=== PATIENT | female | born 1945 | race Caucasian/White ===

== ENCOUNTER 2017-02-08 21:23 | Emergency (ER) | payer MEDICARE, SELFPAY ==
[~2017-02-08 21:23] MED LIST: ALBUTEROL IN200 PUFF INH; ASPIRIN81 MG PO; ATROVENT2.5 ML NEB; AZITHROMYCIN500 MG PO; BENAZEPRIL HCL40 MG PO; BISACODYL5 MG PO; BUSPIRONE HCL7.5 MG PO; CALCIUM + VITA1 EACH PO; CARAFATE1 GM PO; CARDIZEM PO; CATAPRES0.1 MG PO; CATAPRES0.3 MG PO; CEFDINIR300 MG PO; CHILDRENS CHEWA81 MG PO; CLARITIN10 M2 PO; COUMADIN5 MG PO; COUMADIN6 MG PO; DIABETA5 MG PO; DULCOLAX5 MG PO; FEOSOL325 MG PO; FERROUS SULFAT325 MG PO; FOLIC ACID1 MG PO; FUROSEMIDE40 MG PO; GLIPIZIDE10 MG PO; GLUCOPHAGE1000 MG PO; GLUCOTROL10 MG PO; GLYBURIDE5 MG PO; HYDROCHLOROTH12.5 MG PO; K-TAB ER10 MEQ PO; KEFLEX500 MG PO; KLOR-CON 1010 MEQ PO; LASIX40 MG PO; LEVAQUIN500 MG PO; LEVAQUIN750 MG PO; LEVEMIR FL100 UNIT/1 SQ; LEVEMIR SC; LEVEMIR SQ; LIPITOR10 MG PO; LIPITOR20 MG PO; LORADAMED10 MG PO; LOTENSIN20 MG PO; MAGNESIUM OXID400 MG PO; METFORMIN HCL1000 MG PO; NITROGLYCERIN0.4 MG SL; NITROQUICK0.4 MG SL; NOVOLOG FL100 UNIT/1 SQ; OMEPRAZOLE40 MG PO; PANTOPRAZOLE SO40 MG PO; PEPCID20 MG PO; PHOSPHA 250 NE250 MG PO; POTASSIUM CHLO10 ME1 PO; POTASSIUM GLUC500 MG PO; POTASSIUM GLUCONATE PO; PREDNISONE 10MG10 MG PO; PREDNISONE10 M1 PO; PREDNISONE10 MG PO; PRILOSEC40 MG PO; PROAIR HFA8.5 GM INH; PROZAC20 MG PO; SPIRIVA HANDIH90 MCG INH; SPIRIVA18 MCG IH; SPIRIVA18 MCG INH; SUCRALFATE1 GM PO; SYMBICORT 16010.2 GM INH; SYMBICORT 16060 PUFF INH; TOPROL XL 50 MG50 MG PO; TOPROL XL25 MG PO; TYLENOL325 M1 PO; VALIUM5 MG PO; VENTOLIN HFA8 GM INH; WARFARIN SODIUM1 GM PO; WARFARIN SODIUM2 MG PO; WARFARIN SODIUM5 MG PO; WARFARIN SODIUM6 MG PO; XOPENEX0.63 MG/3 NEB; ZITHROMAX250 MG PO
== END 2017-02-09 00:08 | disposition other institution (70) ==
LOC: ER 21:23
DX: J44.1 Chronic obstructive pulmonary disease with (acute) exacerbation (principal); I48.91 Unspecified atrial fibrillation; R00.0 Tachycardia, unspecified; R07.89 Other chest pain; I10 Essential (primary) hypertension; Z95.5 Presence of coronary angioplasty implant and graft; Z82.49 Family history of ischemic heart disease and other diseases of the circulatory system; Z88.8 Allergy status to other drugs, medicaments and biological substances
CPT/HCPCS: 99284; 99284-25

== ENCOUNTER 2017-02-08 21:23 | Inpatient (IN) | payer MEDICARE, SELFPAY ==
[~2017-02-08] VITALS: Ht 162.6 cm; Wt 90.0 kg
[2017-02-08 22:15] LABS: BASO % 0.1 % (0.1-1.2); EOS % 0.1 % (0.7-5.8); GRAN # 16.7 10_X3_uL (1.6-6.1); GRAN % 86.4 % (34.0-71.1); HEMATOCRIT 37.1 % (34-45); HEMOGLOBIN 11.3 g/dL (11.2-15.7); LYMPH # 1.1 10_X3_uL (1.2-3.7); LYMPH % 5.7 % (19.3-51.7); MEAN CORPUSCULAR HEMOGLOBIN 29.4 pg (27.0-33.0); MEAN CORPUSCULAR HGB CONC 30.5 g/dL (32.0-36.0); MEAN CORPUSCULAR VOLUME 96.6 fL (79-95); MEAN PLATELET VOLUME 10.5 fl (7.5-11.5); MONO # 1.5 10_X3_uL (0.2-0.9); MONO % 7.7 % (4.7-12.5); PLATELET COUNT 247 x10_3/uL (182-369); RED BLOOD COUNT 3.84 x10_6/uL (3.9-5.2); RED CELL DISTRIBUTION WIDTH 15.1 % (11.7-14.4); WHITE BLOOD COUNT 19.3 x10_3/uL (4.0-10.0)
[2017-02-08 22:27] LABS: INR 2.8 (0.9-1.1); PARTIAL THROMBOPLASTIN TIME 48.5 SECONDS (21.3-29.3); PROTHROMBIN TIME (PATIENT) 29.2 SECONDS (9.9-11.1)
[2017-02-08 22:33] LABS: ALKALINE PHOSPHATASE 87 U/L (50-136); ALT/SGPT 10 U/L (3.5-33.9); AST/SGOT 9 U/L (7.04-26.96); BILIRUBIN,TOTAL 0.63 mg/dL (0.0-1.0); BLOOD UREA NITROGEN 16 mg/dL (7-18); CALCIUM 8.3 mg/dL (8.7-10.7); CARBON DIOXIDE 26 mmol/L (21-32); CREATINE KINASE 37 U/L (21-215); CREATININE 0.9 mg/dL (0.6-1.3); GLUCOSE,RANDOM 218 mg/dL (70-99); SODIUM 140 mmol/L (136-145)
[2017-02-09 07:19] LABS: PARTIAL THROMBOPLASTIN TIME 52.1 SECONDS (21.3-29.3); PROTHROMBIN TIME (PATIENT) 30.6 SECONDS (9.9-11.1)
[2017-02-09 09:48] LABS: HEMATOCRIT 37.1 % (34-45); HEMOGLOBIN 11.3 g/dL (11.2-15.7); MEAN CORPUSCULAR HEMOGLOBIN 29.5 pg (27.0-33.0); MEAN CORPUSCULAR HGB CONC 30.5 g/dL (32.0-36.0); MEAN CORPUSCULAR VOLUME 96.9 fL (79-95); MEAN PLATELET VOLUME 11.3 fl (7.5-11.5); PLATELET COUNT 241 x10_3/uL (182-369); RED BLOOD COUNT 3.83 x10_6/uL (3.9-5.2); RED CELL DISTRIBUTION WIDTH 15.2 % (11.7-14.4)
[2017-02-09 09:58] LABS: ALBUMIN 3.8 gm/dL (3.4-5.0); ALKALINE PHOSPHATASE 90 U/L (50-136); ALT/SGPT 10 U/L (3.5-33.9); AST/SGOT 12 U/L (7.04-26.96); BILIRUBIN,TOTAL 0.48 mg/dL (0.0-1.0); BLOOD UREA NITROGEN 16 mg/dL (7-18); CALCIUM 8.2 mg/dL (8.7-10.7); CARBON DIOXIDE 24 mmol/L (21-32); CREATININE 0.9 mg/dL (0.6-1.3); GLUCOSE,RANDOM 199 mg/dL (70-99); POTASSIUM 4.4 mmol/L (3.5-5.1); SODIUM 139 mmol/L (136-145); TOTAL PROTEIN 6.2 gm/dL (6.4-8.2)
[2017-02-09 10:16] LABS: WHITE BLOOD COUNT 21.1 x10_3/uL (4.0-10.0)
[2017-02-10 07:35] LABS: GRAN # 15.7 10_X3_uL (1.6-6.1); GRAN % 88.3 % (34.0-71.1); HEMATOCRIT 34.8 % (34-45); HEMOGLOBIN 10.8 g/dL (11.2-15.7); LYMPH # 1.3 10_X3_uL (1.2-3.7); LYMPH % 7.1 % (19.3-51.7); MEAN CORPUSCULAR HEMOGLOBIN 29.8 pg (27.0-33.0); MEAN CORPUSCULAR VOLUME 95.9 fL (79-95); MEAN PLATELET VOLUME 10.7 fl (7.5-11.5); MONO # 0.8 10_X3_uL (0.2-0.9); MONO % 4.6 % (4.7-12.5); PLATELET COUNT 282 x10_3/uL (182-369); RED BLOOD COUNT 3.63 x10_6/uL (3.9-5.2); RED CELL DISTRIBUTION WIDTH 14.9 % (11.7-14.4); WHITE BLOOD COUNT 17.8 x10_3/uL (4.0-10.0)
[2017-02-10 07:47] LABS: ALBUMIN 3.5 gm/dL (3.4-5.0); BILIRUBIN,TOTAL 0.22 mg/dL (0.0-1.0); CALCIUM 8.5 mg/dL (8.7-10.7); CREATININE 1.1 mg/dL (0.6-1.3); MAGNESIUM 1.9 mg/dL (1.8-2.4); POTASSIUM 4.2 mmol/L (3.5-5.1); TOTAL PROTEIN 6.3 gm/dL (6.4-8.2)
[2017-02-10 09:42] LABS: INR 4.1 (0.9-1.1); PROTHROMBIN TIME (PATIENT) 42.1 SECONDS (9.9-11.1)
== END 2017-02-10 11:37 | disposition home or self-care (01) | DRG 309 ==
LOC: ER 21:23 → MS 02-09 00:08
PROVIDERS: Emergency Medicine; ADMIT Family Medicine
DX: I48.91 Unspecified atrial fibrillation (principal); J44.0 Chronic obstructive pulmonary disease with (acute) lower respiratory infection; J44.1 Chronic obstructive pulmonary disease with (acute) exacerbation; J20.9 Acute bronchitis, unspecified; D72.829 Elevated white blood cell count, unspecified; E11.9 Type 2 diabetes mellitus without complications; I10 Essential (primary) hypertension; Z95.5 Presence of coronary angioplasty implant and graft; Z80.9 Family history of malignant neoplasm, unspecified; Z83.3 Family history of diabetes mellitus; R42 Dizziness and giddiness; R00.2 Palpitations; R53.1 Weakness; Z88.8 Allergy status to other drugs, medicaments and biological substances; Z79.01 Long term (current) use of anticoagulants; Z79.899 Other long term (current) drug therapy; Z79.4 Long term (current) use of insulin
CPT/HCPCS: 36415; 71010; 80053; 80061; 82550; 82553; 82962; 83605; 83735; 83880; 85025; 85610; 85730; 87040; 87070; 87205; 87400; 93005; 93041; 94640; 96365; 96375; 99070; 99284; 99284-25; J2930

== ENCOUNTER 2017-03-27 11:58 | Inpatient (IN) | payer MEDICARE ==
[~2017-03-27] VITALS: Ht 165.1 cm; Wt 88.0 kg
[2017-03-27 12:53] LABS: HEMATOCRIT 37.9 % (34-45); HEMOGLOBIN 11.3 g/dL (11.2-15.7); MEAN CORPUSCULAR HEMOGLOBIN 29.4 pg (27.0-33.0); MEAN CORPUSCULAR HGB CONC 29.8 g/dL (32.0-36.0); MEAN CORPUSCULAR VOLUME 98.7 fL (79-95); MEAN PLATELET VOLUME 10.9 fl (7.5-11.5); RED BLOOD COUNT 3.84 x10_6/uL (3.9-5.2); RED CELL DISTRIBUTION WIDTH 15.6 % (11.7-14.4); WHITE BLOOD COUNT 14.1 x10_3/uL (4.0-10.0)
[2017-03-27 13:14] LABS: ALBUMIN 3.9 gm/dL (3.4-5.0); ALKALINE PHOSPHATASE 89 U/L (50-136); ALT/SGPT 13 U/L (3.5-33.9); AST/SGOT 13 U/L (7.04-26.96); BILIRUBIN,TOTAL 0.61 mg/dL (0.0-1.0); BLOOD UREA NITROGEN 20 mg/dL (7-18); CALCIUM 9.1 mg/dL (8.7-10.7); CARBON DIOXIDE 29 mmol/L (21-32); CREATININE 0.9 mg/dL (0.6-1.3); GLUCOSE,RANDOM 161 mg/dL (70-99); SODIUM 143 mmol/L (136-145); TOTAL PROTEIN 6.9 gm/dL (6.4-8.2)
[2017-03-29 06:48] LABS: HEMATOCRIT 32.9 % (34-45); MEAN CORPUSCULAR HEMOGLOBIN 29.6 pg (27.0-33.0); MEAN CORPUSCULAR HGB CONC 30.4 g/dL (32.0-36.0); MEAN CORPUSCULAR VOLUME 97.3 fL (79-95); MEAN PLATELET VOLUME 11.1 fl (7.5-11.5); RED BLOOD COUNT 3.38 x10_6/uL (3.9-5.2); RED CELL DISTRIBUTION WIDTH 15.8 % (11.7-14.4); WHITE BLOOD COUNT 16.4 x10_3/uL (4.0-10.0)
[2017-03-29 07:04] LABS: CALCIUM 9.3 mg/dL (8.7-10.7); CREATININE 1.1 mg/dL (0.6-1.3); POTASSIUM 4.6 mmol/L (3.5-5.1)
[2017-03-30 06:39] LABS: HEMATOCRIT 31.6 % (34-45); HEMOGLOBIN 9.7 g/dL (11.2-15.7); MEAN CORPUSCULAR HEMOGLOBIN 29.9 pg (27.0-33.0); MEAN CORPUSCULAR HGB CONC 30.7 g/dL (32.0-36.0); MEAN CORPUSCULAR VOLUME 97.5 fL (79-95); RED BLOOD COUNT 3.24 x10_6/uL (3.9-5.2); WHITE BLOOD COUNT 14.5 x10_3/uL (4.0-10.0)
[2017-03-30 06:47] LABS: CALCIUM 8.9 mg/dL (8.7-10.7); CREATININE 1.2 mg/dL (0.6-1.3); POTASSIUM 4.2 mmol/L (3.5-5.1)
[2017-03-31 06:56] LABS: BASO % 0.1 % (0.1-1.2); EOS % 0.1 % (0.7-5.8); GRAN # 13.3 10_X3_uL (1.6-6.1); GRAN % 87.7 % (34.0-71.1); HEMATOCRIT 34.7 % (34-45); HEMOGLOBIN 10.7 g/dL (11.2-15.7); LYMPH # 1.3 10_X3_uL (1.2-3.7); LYMPH % 8.6 % (19.3-51.7); MEAN CORPUSCULAR HGB CONC 30.8 g/dL (32.0-36.0); MEAN CORPUSCULAR VOLUME 97.2 fL (79-95); MONO # 0.5 10_X3_uL (0.2-0.9); MONO % 3.5 % (4.7-12.5); PLATELET COUNT 311 x10_3/uL (182-369); RED BLOOD COUNT 3.57 x10_6/uL (3.9-5.2); RED CELL DISTRIBUTION WIDTH 16.1 % (11.7-14.4); WHITE BLOOD COUNT 15.2 x10_3/uL (4.0-10.0)
[2017-03-31 07:05] LABS: ALBUMIN 3.4 gm/dL (3.4-5.0); BILIRUBIN,TOTAL 0.42 mg/dL (0.0-1.0); CALCIUM 8.8 mg/dL (8.7-10.7); CREATININE 1.1 mg/dL (0.6-1.3); POTASSIUM 4.2 mmol/L (3.5-5.1); TOTAL PROTEIN 5.7 gm/dL (6.4-8.2)
[2017-04-01 06:52] LABS: HEMATOCRIT 32.2 % (34-45); HEMOGLOBIN 10.1 g/dL (11.2-15.7); MEAN CORPUSCULAR HEMOGLOBIN 30.2 pg (27.0-33.0); MEAN CORPUSCULAR HGB CONC 31.4 g/dL (32.0-36.0); MEAN CORPUSCULAR VOLUME 96.4 fL (79-95); MEAN PLATELET VOLUME 10.8 fl (7.5-11.5); RED BLOOD COUNT 3.34 x10_6/uL (3.9-5.2); RED CELL DISTRIBUTION WIDTH 16.2 % (11.7-14.4); WHITE BLOOD COUNT 13.8 x10_3/uL (4.0-10.0)
[2017-04-01 07:14] LABS: BILIRUBIN,TOTAL 0.38 mg/dL (0.0-1.0); CALCIUM 8.4 mg/dL (8.7-10.7); POTASSIUM 4.2 mmol/L (3.5-5.1); TOTAL PROTEIN 5.1 gm/dL (6.4-8.2)
== END 2017-04-01 13:20 | disposition home or self-care (01) | DRG 192 ==
LOC: MS 11:58
PROVIDERS: ADMIT Family Medicine
DX: J44.0 Chronic obstructive pulmonary disease with (acute) lower respiratory infection (principal); J20.9 Acute bronchitis, unspecified; J44.1 Chronic obstructive pulmonary disease with (acute) exacerbation; I48.91 Unspecified atrial fibrillation; R00.0 Tachycardia, unspecified; I10 Essential (primary) hypertension; E11.9 Type 2 diabetes mellitus without complications; F41.9 Anxiety disorder, unspecified; I50.9 Heart failure, unspecified; R53.1 Weakness; R50.9 Fever, unspecified; Z87.891 Personal history of nicotine dependence; Z80.9 Family history of malignant neoplasm, unspecified; Z83.6 Family history of other diseases of the respiratory system; Z79.899 Other long term (current) drug therapy; Z79.02 Long term (current) use of antithrombotics/antiplatelets; Z79.84 Long term (current) use of oral hypoglycemic drugs; Z88.8 Allergy status to other drugs, medicaments and biological substances; Z95.5 Presence of coronary angioplasty implant and graft
CPT/HCPCS: 36415; 71020; 71250; 80048; 80053; 80061; 82962; 83036; 85025; 86738; 87040; 87070; 87205; 87449; 94640; 94664; 99070; J2920; J2930; J7040

== ENCOUNTER 2017-03-27 11:58 | Observation (INO) | payer MEDICARE, SELFPAY | END 2017-03-29 10:10 | disposition other institution (70) | LOC: MS 11:58 | PROVIDERS: ADMIT Family Medicine | DX: J44.0 Chronic obstructive pulmonary disease with (acute) lower respiratory infection (principal); J20.9 Acute bronchitis, unspecified; J44.1 Chronic obstructive pulmonary disease with (acute) exacerbation; I48.91 Unspecified atrial fibrillation; R00.0 Tachycardia, unspecified; I10 Essential (primary) hypertension; E11.9 Type 2 diabetes mellitus without complications; F41.9 Anxiety disorder, unspecified; I50.9 Heart failure, unspecified; R53.1 Weakness; R50.9 Fever, unspecified; Z87.891 Personal history of nicotine dependence; Z80.9 Family history of malignant neoplasm, unspecified; Z83.6 Family history of other diseases of the respiratory system; Z79.899 Other long term (current) drug therapy; Z79.84 Long term (current) use of oral hypoglycemic drugs; Z88.8 Allergy status to other drugs, medicaments and biological substances; Z95.5 Presence of coronary angioplasty implant and graft | CPT/HCPCS: 36415; 71020; 80053; 80061; 82962; 83036; 86738; 87040; 87205; 87449; 94640; 94664; 96365; 96366; 96367; 96375; 96376; 99070; G0378; J2930 ==

== ENCOUNTER 2017-04-20 15:02 | Observation (INO) | payer MEDICARE, OTHER | END 2017-04-22 10:12 | disposition other institution (70) | LOC: MS 15:02 | PROVIDERS: ADMIT Family Medicine | DX: J44.0 Chronic obstructive pulmonary disease with (acute) lower respiratory infection (principal); J18.9 Pneumonia, unspecified organism; J44.1 Chronic obstructive pulmonary disease with (acute) exacerbation; I11.0 Hypertensive heart disease with heart failure; I50.9 Heart failure, unspecified; I48.91 Unspecified atrial fibrillation; E11.9 Type 2 diabetes mellitus without complications; D72.829 Elevated white blood cell count, unspecified; R74.0 Nonspecific elevation of levels of transaminase and lactic acid dehydrogenase [LDH]; M62.50 Muscle wasting and atrophy, not elsewhere classified, unspecified site; R11.0 Nausea; I25.10 Atherosclerotic heart disease of native coronary artery without angina pectoris; D64.9 Anemia, unspecified; R60.0 Localized edema; J98.11 Atelectasis; F41.9 Anxiety disorder, unspecified; Z80.9 Family history of malignant neoplasm, unspecified; Z79.899 Other long term (current) drug therapy; Z79.02 Long term (current) use of antithrombotics/antiplatelets; Z79.4 Long term (current) use of insulin | CPT/HCPCS: 36415; 71020; 80053; 80061; 82962; 83036; 85025; 86738; 87040; 87205; 87449; 94640; 94664; 99070; G0378; J2930 ==

== ENCOUNTER 2017-04-20 15:02 | Inpatient (IN) | payer MEDICARE, OTHER ==
[~2017-04-20] VITALS: Ht 165.1 cm; Wt 87.0 kg
[2017-04-21 06:43] LABS: GRAN # 6.5 10_X3_uL (1.6-6.1); GRAN % 88.5 % (34.0-71.1); HEMOGLOBIN 9.9 g/dL (11.2-15.7); LYMPH # 0.8 10_X3_uL (1.2-3.7); LYMPH % 10.1 % (19.3-51.7); MEAN CORPUSCULAR HEMOGLOBIN 30.5 pg (27.0-33.0); MEAN CORPUSCULAR HGB CONC 30.9 g/dL (32.0-36.0); MEAN CORPUSCULAR VOLUME 98.5 fL (79-95); MEAN PLATELET VOLUME 10.2 fl (7.5-11.5); MONO # 0.1 10_X3_uL (0.2-0.9); MONO % 1.4 % (4.7-12.5); PLATELET COUNT 336 x10_3/uL (182-369); RED BLOOD COUNT 3.25 x10_6/uL (3.9-5.2); RED CELL DISTRIBUTION WIDTH 15.2 % (11.7-14.4); WHITE BLOOD COUNT 7.4 x10_3/uL (4.0-10.0)
[2017-04-21 06:53] LABS: ALBUMIN 3.3 gm/dL (3.4-5.0); BILIRUBIN,TOTAL 0.38 mg/dL (0.0-1.0); CALCIUM 9.4 mg/dL (8.7-10.7); POTASSIUM 4.6 mmol/L (3.5-5.1)
[2017-04-22 06:50] LABS: HEMATOCRIT 29.7 % (34-45); HEMOGLOBIN 9.3 g/dL (11.2-15.7); MEAN CORPUSCULAR HEMOGLOBIN 30.6 pg (27.0-33.0); MEAN CORPUSCULAR HGB CONC 31.3 g/dL (32.0-36.0); MEAN CORPUSCULAR VOLUME 97.7 fL (79-95); MEAN PLATELET VOLUME 10.5 fl (7.5-11.5); RED BLOOD COUNT 3.04 x10_6/uL (3.9-5.2); RED CELL DISTRIBUTION WIDTH 15.1 % (11.7-14.4); WHITE BLOOD COUNT 13.5 x10_3/uL (4.0-10.0)
[2017-04-22 07:09] LABS: CALCIUM 9.3 mg/dL (8.7-10.7); POTASSIUM 4.2 mmol/L (3.5-5.1)
[2017-04-23 07:10] LABS: HEMATOCRIT 31.6 % (34-45); HEMOGLOBIN 9.8 g/dL (11.2-15.7); MEAN CORPUSCULAR HEMOGLOBIN 30.4 pg (27.0-33.0); MEAN CORPUSCULAR VOLUME 98.1 fL (79-95); MEAN PLATELET VOLUME 10.5 fl (7.5-11.5); RED BLOOD COUNT 3.22 x10_6/uL (3.9-5.2); RED CELL DISTRIBUTION WIDTH 15.5 % (11.7-14.4); WHITE BLOOD COUNT 13.1 x10_3/uL (4.0-10.0)
[2017-04-23 07:26] LABS: CALCIUM 9.1 mg/dL (8.7-10.7); CREATININE 1.1 mg/dL (0.6-1.3); POTASSIUM 4.2 mmol/L (3.5-5.1)
[2017-04-24 07:13] LABS: HEMATOCRIT 31.2 % (34-45); HEMOGLOBIN 9.5 g/dL (11.2-15.7); MEAN CORPUSCULAR HGB CONC 30.4 g/dL (32.0-36.0); MEAN CORPUSCULAR VOLUME 98.4 fL (79-95); MEAN PLATELET VOLUME 10.2 fl (7.5-11.5); RED BLOOD COUNT 3.17 x10_6/uL (3.9-5.2); RED CELL DISTRIBUTION WIDTH 15.5 % (11.7-14.4); WHITE BLOOD COUNT 14.7 x10_3/uL (4.0-10.0)
[2017-04-24 07:24] LABS: CALCIUM 8.8 mg/dL (8.7-10.7); POTASSIUM 4.2 mmol/L (3.5-5.1)
[2017-04-25 11:50] LABS: BASO % 0.2 % (0.1-1.2); GRAN # 15.6 10_X3_uL (1.6-6.1); GRAN % 84.4 % (34.0-71.1); HEMATOCRIT 33.4 % (34-45); HEMOGLOBIN 10.3 g/dL (11.2-15.7); LYMPH # 1.6 10_X3_uL (1.2-3.7); LYMPH % 8.5 % (19.3-51.7); MEAN CORPUSCULAR HEMOGLOBIN 30.4 pg (27.0-33.0); MEAN CORPUSCULAR HGB CONC 30.8 g/dL (32.0-36.0); MEAN CORPUSCULAR VOLUME 98.5 fL (79-95); MEAN PLATELET VOLUME 9.8 fl (7.5-11.5); MONO # 1.3 10_X3_uL (0.2-0.9); MONO % 6.9 % (4.7-12.5); PLATELET COUNT 435 x10_3/uL (182-369); RED BLOOD COUNT 3.39 x10_6/uL (3.9-5.2); RED CELL DISTRIBUTION WIDTH 15.8 % (11.7-14.4); WHITE BLOOD COUNT 18.5 x10_3/uL (4.0-10.0)
[2017-04-25 12:00] LABS: POTASSIUM 4.2 mmol/L (3.5-5.1)
[2017-04-26 07:17] LABS: ALKALINE PHOSPHATASE 58 U/L (50-136); ALT/SGPT 14 U/L (3.5-33.9); AST/SGOT 11 U/L (7.04-26.96); BILIRUBIN,TOTAL 0.26 mg/dL (0.0-1.0); BLOOD UREA NITROGEN 33 mg/dL (7-18); CALCIUM 8.3 mg/dL (8.7-10.7); CARBON DIOXIDE 31 mmol/L (21-32); CREATININE 0.9 mg/dL (0.6-1.3); GLUCOSE,RANDOM 235 mg/dL (70-99); POTASSIUM 4.2 mmol/L (3.5-5.1); SODIUM 145 mmol/L (136-145); TOTAL PROTEIN 5.2 gm/dL (6.4-8.2)
[2017-04-26 07:21] LABS: BASO % 0.1 % (0.1-1.2); GRAN # 17.1 10_X3_uL (1.6-6.1); GRAN % 80.4 % (34.0-71.1); HEMATOCRIT 32.4 % (34-45); HEMOGLOBIN 9.8 g/dL (11.2-15.7); LYMPH # 1.9 10_X3_uL (1.2-3.7); MEAN CORPUSCULAR HEMOGLOBIN 30.1 pg (27.0-33.0); MEAN CORPUSCULAR HGB CONC 30.2 g/dL (32.0-36.0); MEAN CORPUSCULAR VOLUME 99.4 fL (79-95); MEAN PLATELET VOLUME 10.2 fl (7.5-11.5); MONO # 2.2 10_X3_uL (0.2-0.9); MONO % 10.5 % (4.7-12.5); PLATELET COUNT 387 x10_3/uL (182-369); RED BLOOD COUNT 3.26 x10_6/uL (3.9-5.2); RED CELL DISTRIBUTION WIDTH 15.9 % (11.7-14.4)
[2017-04-26 07:26] LABS: WHITE BLOOD COUNT 21.3 x10_3/uL (4.0-10.0)
[2017-04-27 04:08] LABS: HEMATOCRIT 30.8 % (34-45); HEMOGLOBIN 9.6 g/dL (11.2-15.7); MEAN CORPUSCULAR HEMOGLOBIN 30.7 pg (27.0-33.0); MEAN CORPUSCULAR HGB CONC 31.2 g/dL (32.0-36.0); MEAN CORPUSCULAR VOLUME 98.4 fL (79-95); MEAN PLATELET VOLUME 10.3 fl (7.5-11.5); PLATELET COUNT 277 x10_3/uL (182-369); RED BLOOD COUNT 3.13 x10_6/uL (3.9-5.2); RED CELL DISTRIBUTION WIDTH 16.2 % (11.7-14.4); WHITE BLOOD COUNT 19.4 x10_3/uL (4.0-10.0)
[2017-04-27 04:31] LABS: BLOOD UREA NITROGEN 29 mg/dL (7-18); CALCIUM 7.7 mg/dL (8.7-10.7); CARBON DIOXIDE 25 mmol/L (21-32); CREATININE 0.9 mg/dL (0.6-1.3); GLUCOSE,RANDOM 193 mg/dL (70-99); POTASSIUM 4.7 mmol/L (3.5-5.1); SERUM IRON 50 ug/dl (50-170); SODIUM 142 mmol/L (136-145); UIBC 152 ug/dL (135-370)
[2017-04-27 04:32] LABS: URINE BILIRUBIN NEGATIVE (NEGATIVE); URINE BLOOD NEGATIVE (NEGATIVE); URINE GLUCOSE (UA) NORMAL (NORMAL); URINE KETONE NEGATIVE (NEGATIVE); URINE LEUKOCYTE ESTERASE NEGATIVE (NEGATIVE); URINE NITRATE NEGATIVE (NEGATIVE); URINE PROTEIN NEGATIVE (NEGATIVE); UROBILINOGEN NORMAL mg/dL (<1.0)
[2017-04-27 04:45] LABS: FOLATE 16.97 ng/mL (3.17-24.25)
[2017-04-27 05:11] LABS: GRAN # 16.3 10_X3_uL (1.6-6.1); LYMPH # 1.5 10_X3_uL (1.2-3.7); MONO # 1.6 10_X3_uL (0.2-0.9)
[2017-04-27 05:12] LABS: BASO % 0.2 % (0.1-1.2); GRAN % 83.9 % (34.0-71.1); LYMPH % 7.9 % (19.3-51.7)
== END 2017-04-27 11:15 | disposition swing bed (61) | DRG 190 ==
LOC: MS 15:02
PROVIDERS: Family Medicine; ADMIT Family Medicine
DX: J44.0 Chronic obstructive pulmonary disease with (acute) lower respiratory infection (principal); J18.9 Pneumonia, unspecified organism; J98.11 Atelectasis; J44.1 Chronic obstructive pulmonary disease with (acute) exacerbation; I11.0 Hypertensive heart disease with heart failure; I50.9 Heart failure, unspecified; I48.91 Unspecified atrial fibrillation; E11.9 Type 2 diabetes mellitus without complications; D72.829 Elevated white blood cell count, unspecified; R74.0 Nonspecific elevation of levels of transaminase and lactic acid dehydrogenase [LDH]; M62.50 Muscle wasting and atrophy, not elsewhere classified, unspecified site; R11.0 Nausea; I25.10 Atherosclerotic heart disease of native coronary artery without angina pectoris; D64.9 Anemia, unspecified; R60.0 Localized edema; F41.9 Anxiety disorder, unspecified; Z80.9 Family history of malignant neoplasm, unspecified; Z79.899 Other long term (current) drug therapy; Z79.02 Long term (current) use of antithrombotics/antiplatelets; Z79.4 Long term (current) use of insulin
CPT/HCPCS: 36415; 71020; 80048; 80053; 80061; 81003; 82607; 82728; 82746; 82962; 83036; 83540; 83550; 83605; 83880; 85025; 86738; 87040; 87070; 87086; 87205; 87449; 93041; 94640; 94664; 99070; J2930; J3370; J7040

== ENCOUNTER 2017-04-27 11:08 | Inpatient (IN) | payer MEDICARE ==
[~2017-04-27] VITALS: Ht 165.1 cm; Wt 93.0 kg
[2017-04-28 06:44] LABS: HEMATOCRIT 34.7 % (34-45); HEMOGLOBIN 10.5 g/dL (11.2-15.7); MEAN CORPUSCULAR HEMOGLOBIN 30.3 pg (27.0-33.0); MEAN CORPUSCULAR HGB CONC 30.3 g/dL (32.0-36.0); RED BLOOD COUNT 3.47 x10_6/uL (3.9-5.2); RED CELL DISTRIBUTION WIDTH 16.7 % (11.7-14.4); WHITE BLOOD COUNT 18.3 x10_3/uL (4.0-10.0)
[2017-04-28 07:03] LABS: CALCIUM 8.1 mg/dL (8.7-10.7); POTASSIUM 3.6 mmol/L (3.5-5.1)
[2017-04-29 17:14] LABS: HEMATOCRIT 31.2 % (34-45); HEMOGLOBIN 9.6 g/dL (11.2-15.7); MEAN CORPUSCULAR HEMOGLOBIN 30.6 pg (27.0-33.0); MEAN CORPUSCULAR HGB CONC 30.8 g/dL (32.0-36.0); MEAN CORPUSCULAR VOLUME 99.4 fL (79-95); MEAN PLATELET VOLUME 10.4 fl (7.5-11.5); RED BLOOD COUNT 3.14 x10_6/uL (3.9-5.2); RED CELL DISTRIBUTION WIDTH 16.3 % (11.7-14.4); WHITE BLOOD COUNT 18.8 x10_3/uL (4.0-10.0)
[2017-04-30 05:06] LABS: HEMATOCRIT 32.5 % (34-45); HEMOGLOBIN 10.1 g/dL (11.2-15.7); MEAN CORPUSCULAR HEMOGLOBIN 30.4 pg (27.0-33.0); MEAN CORPUSCULAR HGB CONC 31.1 g/dL (32.0-36.0); MEAN CORPUSCULAR VOLUME 97.9 fL (79-95); MEAN PLATELET VOLUME 10.1 fl (7.5-11.5); RED BLOOD COUNT 3.32 x10_6/uL (3.9-5.2); RED CELL DISTRIBUTION WIDTH 16.4 % (11.7-14.4); WHITE BLOOD COUNT 19.7 x10_3/uL (4.0-10.0)
[2017-04-30 05:19] LABS: ALBUMIN 3.4 gm/dL (3.4-5.0); ALKALINE PHOSPHATASE 61 U/L (50-136); ALT/SGPT 15 U/L (3.5-33.9); AST/SGOT 12 U/L (7.04-26.96); BILIRUBIN,TOTAL 0.59 mg/dL (0.0-1.0); BLOOD UREA NITROGEN 17 mg/dL (7-18); CALCIUM 8.9 mg/dL (8.7-10.7); CARBON DIOXIDE 34 mmol/L (21-32); CREATININE 0.8 mg/dL (0.6-1.3); GLUCOSE,RANDOM 196 mg/dL (70-99); POTASSIUM 3.4 mmol/L (3.5-5.1); SODIUM 143 mmol/L (136-145)
[2017-05-01 06:41] LABS: HEMATOCRIT 30.8 % (34-45); HEMOGLOBIN 9.4 g/dL (11.2-15.7); MEAN CORPUSCULAR HEMOGLOBIN 30.3 pg (27.0-33.0); MEAN CORPUSCULAR HGB CONC 30.5 g/dL (32.0-36.0); MEAN CORPUSCULAR VOLUME 99.4 fL (79-95); MEAN PLATELET VOLUME 10.7 fl (7.5-11.5); RED BLOOD COUNT 3.1 x10_6/uL (3.9-5.2); RED CELL DISTRIBUTION WIDTH 16.7 % (11.7-14.4); WHITE BLOOD COUNT 17.5 x10_3/uL (4.0-10.0)
[2017-05-01 06:53] LABS: ALBUMIN 3.1 gm/dL (3.4-5.0); ALKALINE PHOSPHATASE 56 U/L (50-136); ALT/SGPT 13 U/L (3.5-33.9); AST/SGOT 12 U/L (7.04-26.96); BILIRUBIN,TOTAL 0.52 mg/dL (0.0-1.0); BLOOD UREA NITROGEN 18 mg/dL (7-18); CALCIUM 8.6 mg/dL (8.7-10.7); CARBON DIOXIDE 32 mmol/L (21-32); CREATININE 0.7 mg/dL (0.6-1.3); GLUCOSE,RANDOM 250 mg/dL (70-99); POTASSIUM 3.9 mmol/L (3.5-5.1); SODIUM 143 mmol/L (136-145); TOTAL PROTEIN 5.5 gm/dL (6.4-8.2)
== END 2017-05-01 21:15 | disposition short-term general hospital (02) | DRG 190 ==
LOC: SWING 11:08
PROVIDERS: ADMIT Family Medicine
DX: J44.1 Chronic obstructive pulmonary disease with (acute) exacerbation (principal); J18.9 Pneumonia, unspecified organism; E87.2 Acidosis; I48.91 Unspecified atrial fibrillation; I50.9 Heart failure, unspecified; E11.9 Type 2 diabetes mellitus without complications; D72.829 Elevated white blood cell count, unspecified; M62.50 Muscle wasting and atrophy, not elsewhere classified, unspecified site; I11.0 Hypertensive heart disease with heart failure; Z80.9 Family history of malignant neoplasm, unspecified; Z82.49 Family history of ischemic heart disease and other diseases of the circulatory system; Y95 Nosocomial condition; E87.6 Hypokalemia; Z79.899 Other long term (current) drug therapy; Z79.4 Long term (current) use of insulin; Z79.01 Long term (current) use of anticoagulants
CPT/HCPCS: 36415; 71250; 80048; 80053; 82962; 83605; 83880; 93041; 94640